=== PATIENT | male | born 1995 | race Two or more races ===

== ENCOUNTER 2018-03-14 16:30 | Emergency (ER) | payer OTHER ==
[~2018-03-14] VITALS: Ht 170.2 cm; Wt 63.5 kg
[2018-03-14 16:35] VITALS: BP 105/47
--- NOTE | 2018-03-14 17:56 | Diagnostic Imaging Report ---
EXAM: XR Left Hand Complete, 3 Views CLINICAL HISTORY: PAIN TECHNIQUE: Frontal, lateral and oblique views of the left hand. COMPARISON: No relevant prior studies available. FINDINGS: Bones/joints: Unremarkable. No acute fracture. No dislocation. Soft tissues: Unremarkable. No radiopaque foreign body. IMPRESSION: No definite plain film evidence for acute fracture or dislocation. If there is continued clinical concern for fracture, consider CT or MRI for further evaluation.
[2018-03-14] MEDS ORDERED: IBUPROFEN600 MG ORAL (18:10)
[2018-03-14 18:27] VITALS: BP 115/55
--- NOTE | 2018-03-14 18:55 | Emergency Room Report ---
History of Present Illness General Chief Complaint: Upper Extremity Injury Source: Patient Present Illness HPI 22-year-old male presents ED for evaluation. Presenting with left hand pain status post heavy object falling at work. Occurred today. Pain is dull, 8 out of 10, nonradiating. Notes bruising to the left hand. Denies any other injuries. No other aggravating relieving factors. Denies any other associated symptoms Allergies: Coded Allergies: No Known Allergies (Unverified , 03/14/18) Patient History Past Medical History: none Past Surgical History: none Pertinent Family History: none Social History: Denies: smoking, alcohol use, drug use Immunizations: UTD Reviewed Nursing Documentation: PMH: Agreed; PSxH: Agreed Nursing Documentation-PMH Past Medical History: No Stated History Review of Systems All Other Systems: negative except mentioned in HPI Physical Exam Vital Signs Date Time Temp Pulse Resp B/P (MAP) Pulse Ox O2 Delivery O2 Flow Rate FiO2 03/14/18 16:31 98.1 66 19 105/47 99 Room Air Sp02 EP Interpretation: reviewed, normal General Appearance: no apparent distress, alert, GCS 15, non-toxic Head: normocephalic Eyes: bilateral eye normal inspection, bilateral eye PERRL ENT: normal ENT inspection Neck: normal inspection Respiratory: normal inspection Cardiovascular #1: normal inspection Gastrointestinal: normal inspection Rectal: deferred Genitourinary: no CVA tenderness Musculoskeletal: back normal, gait/station normal, normal range of motion, other - brusiing dorsum L hand Neurologic: alert, oriented x3, responsive, motor strength/tone normal, sensory intact, speech normal Psychiatric: normal inspection Skin: normal inspection Lymphatic: normal inspection Medical Decision Making Diagnostic Impression: Primary Impression: Contusion, hand Qualified Codes: S60.222A - Contusion of left hand, initial encounter ER Course Hospital Course 22-year-old M presents to ED complaining of L hand pain Differential diagnoses include: Fracture, dislocation, sprain, contusion Clinical course Patient placed on stretcher. After initial history and physical, I ordered pain medications and Xrays of L hand Xrays read shows no acute fracture/dislocation. Discussed findings with patient. On reassessment pain improved. Ice, modified activity. Safe for discharge and close outpatient follow-up Diagnosis - hand contusion Stable and discharged to home with prescription for Motrin. apply ice, keep elevated. weight bear as tolerated. Followup with PMD. Return to ED if symptoms recur or worsen Other X-Ray Diagnostic Results Other X-Ray Diagnostic Results : X-Ray ordered: L hand # of Views/Limited Vs Complete: 3 View Indication: Pain EP Interpretation: Yes Interpretation: no dislocation, no soft tissue swelling, no fractures Impression: No acute disease Electronically Signed by: Electronically signed by Surjit Ramírez MD Last Vital Signs Date Time Temp Pulse Resp B/P (MAP) Pulse Ox O2 Delivery O2 Flow Rate FiO2 03/14/18 18:27 98.1 80 18 115/55 99 Room Air Status: improved Disposition: HOME, SELF-CARE Condition: Stable Scripts Ibuprofen* (MOTRIN*) 600 Mg Tablet 600 MG ORAL Q8H PRN for For Pain, #30 TAB 0 Refills Prov: Surjit Ramírez MD 03/14/18 Departure Forms: Return to Work Return to Work Date: Mar 16, 2018 Work Restrictions: No Heavy Lifting Patient Instructions: Contusion, [id number] Surjit Ramírez MD Mar 14, 2018 18:55
== END 2018-03-14 18:28 | disposition home or self-care (01) ==
LOC: EMR 17:11
DX: S60.222A Contusion of left hand, initial encounter (principal); W20.8XXA Other cause of strike by thrown, projected or falling object, initial encounter; Y92.9 Unspecified place or not applicable; Y99.0 Civilian activity done for income or pay
CPT/HCPCS: 99283

== ENCOUNTER 2018-05-03 15:44 | Emergency (ER) | payer OTHER ==
[~2018-05-03] VITALS: Ht 170.2 cm; Wt 63.5 kg
[~2018-05-03 15:44] MED LIST: IBUPROFEN600 MG ORAL
[2018-05-03] MEDS ORDERED: NKM (15:49)
[2018-05-03 15:50] VITALS: BP 110/62
[2018-05-03] MEDS ORDERED: Bacitracin Oint UD TOPIC ONE ×2 (15:59→16:00)
[2018-05-03] MEDS ORDERED: Tetanus/Diptheria/Pertussis Vaccine 0.5ml Syr IM ONE ×2 (15:59→16:00)
--- NOTE | 2018-05-03 17:04 | Emergency Room Report ---
History of Present Illness General Chief Complaint: Laceration Source: Patient (Lorena Youssef) Present Illness HPI 22-year-old male with no significant past medical history ER complaining of a laceration on the right hand 3 days ago. Patient was washing dishes at work as a glass broke and cut his right hands 3 days ago patient washed his, when he noticed that there is reopening of the laceration today. This was sent to the emergency room for evaluation. Patient is rating the pain a 5 out of 10 and intermittent. Has complete sensation in the right hand. Doesn't report any pain radiation and has been taking ibuprofen for pain relief. Patient does not report any fever or chills. Patient is not up-to-date with his tetanus shot. Denies all other injuries, chest pain, SOB, palpitation, tingling and numbness (Lorena Youssef) Allergies: Coded Allergies: No Known Allergies (Unverified , 03/14/18) Patient History Past Medical History: see triage record Past Surgical History: none Pertinent Family History: none Immunizations: other - Tdap given in ER today Reviewed Nursing Documentation: PMH: Agreed; PSxH: Agreed (Lorena Youssef) Nursing Documentation-PMH Past Medical History: No History, Except For Hx Asthma: Yes (Lorena Youssef) Review of Systems All Other Systems: negative except mentioned in HPI (Lorena Youssef) Physical Exam Vital Signs Date Time Temp Pulse Resp B/P (MAP) Pulse Ox O2 Delivery O2 Flow Rate FiO2 05/03/18 15:46 98.6 79 18 107/59 97 Room Air Sp02 EP Interpretation: reviewed, normal General Appearance: normal inspection, well appearing, no apparent distress Head: normocephalic Eyes: bilateral eye normal inspection, bilateral eye PERRL ENT: normal ENT inspection, normal pharynx Neck: normal inspection, supple Respiratory: normal inspection, lungs clear, no wheezing Cardiovascular #1: normal inspection, no edema, no murmur Cardiovascular #2: 2+ radial (R), 2+ radial (L) Gastrointestinal: normal inspection, soft Rectal: deferred Genitourinary: deferred Musculoskeletal: back normal, digits/nails normal, other - healing laceration, superficial, right hand in between first and second metacarpals Neurologic: normal inspection, alert, oriented x3 Psychiatric: normal inspection, judgement/insight normal Skin: laceration - Superficial laceration healing with minimal bleeding on right hand in between first and second metacarpals Lymphatic: normal inspection, no adenopathy (Lorena Youssef) Procedures Additional Procedure Procedure Narrative 2 Steri-Strips were applied, wound clean and dress (Lorena Youssef) Medical Decision Making PA Attestation all diagnoses and treatment plan are reviewed and discussed my supervising physician Dr. Terrell (Lorena Youssef) Diagnostic Impression: Primary Impression: Laceration of hand without foreign body Additional Impression: Wound infection ER Course 22-year-old male with no significant past medical history ER complaining of a laceration on the right hand 3 days ago. Patient was washing dishes at work as a glass broke and cut his right hands 3 days ago patient washed his, when he noticed that there is reopening of the laceration today. This was sent to the emergency room for evaluation. Patient is rating the pain a 5 out of 10 and intermittent. Has complete sensation in the right hand. Doesn't report any pain radiation and has been taking ibuprofen for pain relief. Patient does not report any fever or chills. Patient is not up-to-date with his tetanus shot. Denies all other injuries, chest pain, SOB, palpitation, tingling and numbness Ddx considered but are not limited to for facial laceration of right hand, the laceration of right hand, foreign body dissected and right hand, Vital signs: are WNL, pt. is afebrile H&PE are most consistent with superficial healing laceration of right hand with minimal wound infection without foreign body ORDERS:right hand x-ray, Tdap, bacitracin, wound cleaned and dressed, Steri- Strips, Keflex, ibuprofen ED INTERVENTIONS: Steri-Strips, wound clean and dress, Tdap DISCHARGE: At this time pt. is stable for d/c to home. Will provide printed patient care instructions, and any necessary prescriptions. Care plan and follow up instructions have been discussed with the patient prior to discharge. patient had never has been filled out patient is to avoid washing dishes for 7 days wear gloves do not get wet, the patient understands that the laceration is closing and cannot be repaired with sutures (Lorena Youssef) Other X-Ray Diagnostic Results Other X-Ray Diagnostic Results : X-Ray ordered: right hand # of Views/Limited Vs Complete: Complete Indication: Other - laceration EP Interpretation: Yes PA Xray: Interpretation reviewed, by supervising MD, and agrees with findings. Interpretation: no dislocation, no soft tissue swelling, no fractures, other - No foreign body or glass noted Impression: No acute disease Electronically Signed by: Lorena Harvey PA-C (Lorena Youssef) Other X-Ray Diagnostic Results : Electronically Signed by: Janie Bates documentation of Xray reviewed by me and is accurate, Silvestre Terrell MD (Silvestre Terrell MD) Last Vital Signs Date Time Temp Pulse Resp B/P (MAP) Pulse Ox O2 Delivery O2 Flow Rate FiO2 05/03/18 15:50 98.7 75 16 110/62 98 Room Air (Lorena Youssef) Disposition: HOME, SELF-CARE Condition: Stable Scripts Ibuprofen* (MOTRIN*) 600 Mg Tablet 600 MG ORAL Q8H PRN for For Pain, #30 TAB 0 Refills Prov: Lorena Youssef 05/03/18 Cephalexin* (KEFLEX*) 500 Mg Capsule 500 MG ORAL EVERY 6 HOURS for 7 Days, #28 CAP Prov: Lorena Youssef 05/03/18 Referrals: NOT CHOSEN IPA/,REFERRING (PCP) Patient Instructions: Laceration Care, Adult, Wound Infection, [id number] Lorena Youssef May 03, 2018 17:04 Silvestre Terrell MD May 04, 2018 01:33
[2018-05-03] MEDS ORDERED: CEPHALEXIN500 MG ORAL (17:05)
[2018-05-03] MEDS ORDERED: IBUPROFEN600 MG ORAL (17:05)
[2018-05-03 17:31] VITALS: BP 113/67
--- NOTE | 2018-05-04 10:09 | Diagnostic Imaging Report ---
Indication: Trauma, pain, laceration Technique: 3 views right hand Comparison: none Findings: No acute fractures. No dislocations. The joint spaces are preserved. No definite soft tissue disruption or radiopaque foreign body demonstrated Impression: Negative
== END 2018-05-03 17:52 | disposition home or self-care (01) ==
LOC: EMR 16:21
DX: S61.411A Laceration without foreign body of right hand, initial encounter (principal); L08.9 Local infection of the skin and subcutaneous tissue, unspecified; W25.XXXA Contact with sharp glass, initial encounter; W45.8XXA Other foreign body or object entering through skin, initial encounter; Y93.G1 Activity, food preparation and clean up; Y92.89 Other specified places as the place of occurrence of the external cause; Y99.0 Civilian activity done for income or pay; Z23 Encounter for immunization
CPT/HCPCS: 90471; 90715; 99283